=== PATIENT | male | born 1985 | race African-American/Black ===

== ENCOUNTER 2018-10-24 00:40 | Emergency (ER) | payer BC ==
[2018-10-24] MEDS ORDERED: HUMULIN R 100 UNIT/ML VIAL SC ONE (00:41)
[2018-10-24] MEDS: HUMULIN R 100 UNIT/ML VIAL SQ ONE ×2 (01:03→01:45)
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
== END 2018-10-24 02:49 | disposition home or self-care (01) ==
LOC: ER 00:40
DX: S09.90XA Unspecified injury of head, initial encounter (principal); R51 Headache; R42 Dizziness and giddiness; I10 Essential (primary) hypertension; E11.65 Type 2 diabetes mellitus with hyperglycemia; Z79.4 Long term (current) use of insulin; Z87.891 Personal history of nicotine dependence; Y04.0XXA Assault by unarmed brawl or fight, initial encounter; Y92.410 Unspecified street and highway as the place of occurrence of the external cause
CPT/HCPCS: 99283; 96372; 99284; 36416; 82948; 70450; J1815